=== PATIENT | male | born 1940 | race Caucasian/White ===

== ENCOUNTER 2021-08-23 06:22 | Inpatient (IN) ==
[2021-08-23] MEDS ORDERED: NS 1000 ML 1,000 ML ONE (06:50)
[2021-08-23] MEDS ORDERED: ANCEF 1 GRAM IV PREMIX* 2 G/100 ML BAG IV ONE (06:51)
[2021-08-23] MEDS ORDERED: XYLOCAINE 1 % (PLAIN) ONE (07:27)
[2021-08-23 07:31] VITALS: BMI 19.8
[2021-08-23] MEDS ORDERED: DIPRIVAN VIAL ONE (08:12)
[2021-08-23] MEDS ORDERED: MARCAINE SPINAL ONE (08:12)
[2021-08-23] MEDS ORDERED: VERSED ONE (08:12)
[2021-08-23] MEDS ORDERED: BETADINE SOLN ONE ×2 (08:25→08:26)
[2021-08-23] MEDS ORDERED: BACTROBAN TOPICAL OINT ONE (09:38)
--- NOTE | 2021-08-23 09:53 | OR.IMMED ---
IMMEDIATE POST-OP NOTE Immediate Post-Op Note Pre-Op Diagnosis: severe osteomyelitis left foot Post-Op Diagnosis: same Procedure: left below knee amputation Description of Procedure: see operative summary Surgeon/Dredge Worker: annalise Findings: as above Specimens Removed: left leg below knee Estimated Blood Loss: 200 cc Drains: NONE Complications: none Progress Notes: admit Condition: Stable Post Hospital Plans and Medications: admit for observation
[2021-08-23] MEDS: LR 1000 ML IV 1,000 ML IV SCH ×2 (11:35→23:36)
[2021-08-23] MEDS: PERCOCET TAB 5/325 MG PO PRN ×2 (11:42→17:50)
[2021-08-23] MEDS ORDERED: DILAUDID INJ IVP PRN (13:34)
--- NOTE | 2021-08-23 17:53 | DR.OPNOTE ---
OP NOTE Pre-Op Diagnosis: This patient is a 81 yo male with osteomyelitis left foot Post-Op Diagnosis: same Procedure Date Date Of Procedure: 08/23/21 Procedure: Patient was taken to the operating Suite where he was placed in the supine position after a spinal anesthetic had been placed. Time out for the procedure obtained . A dog-leg type incision was performed starting one hands breadths below the tibial tuberosity of the left knee. The greater saphenous vein was divided between clamps and tied with 2-0 silk ties. The muscle of the anterior tibial compartment divided with electrocautery down to the anterior tibial artery and vein. Both were divided between clamps and tied with 2-0 silk suture ligatures. Dissection was carried down with electrocautery medial to the fibula and the peroneal artery clamped and tied with 2-0 silk suture liga shantel. Periosteal elevator used to elevate the periosteum of the tibia. Tibia divided with a Gigli saw and the fibula divided with a bone cutter. Amputation completed with the amputation knife. All bleeding vessels clamped and tied with 2-0 silk suture ligatures. The remaining hemostasis obtained with electrocautery. The entire wound irrigated. The two flaps then closed with interrupted 3-0 Vicryl sutures and the skin closed with skin gertrudis. Dressing applied. The patient was taken to PACU in good condition. Type of Anesthesia: Spinal Anesthetic Findings: as above Specimen/Pathology: left leg below knee Type of Fluids Used:: Lactated Ringers EBL: 200 cc Complications:: none Needle/Sponge Count:: correct Disposition/Condition: Pt. tolerated procedure without difficulty. Extubated in the OR and taken to PACU in stable condition.
[2021-08-23] MEDS: COREG TAB 25 MG PO SCH (21:27)
[2021-08-23] MEDS: PEPCID TAB 20 MG PO SCH (21:28)
[2021-08-24] MEDS: PERCOCET TAB 5/325 MG PO PRN ×4 (02:51→20:56)
[2021-08-24 06:54] LABS: BASOPHILS % (AUTO) 0.2 % (0.2-1.0); EOSINOPHILS % (AUTO) 0.4 % (0.9-2.9); HEMOGLOBIN 11.2 g/dL (13.5-18.0); LYMPHOCYTES # (AUTO) 1.1 X10^3/uL (1.3-2.9); LYMPHOCYTES % (AUTO) 17.3 % (21.0-51.0); MEAN CORPUSCULAR HEMOGLOBIN 28.9 pg (27.0-34.0); MEAN CORPUSCULAR VOLUME 85.1 fL (80.0-100.0); MEAN PLATELET VOLUME 7.2 fL (7.4-11.0); MONOCYTES # (AUTO) 0.4 x10^3/uL (0.3-0.8); MONOCYTES % (AUTO) 5.4 % (0.0-13.0); NEUTROPHILS % (AUTO) 76.7 % (42.0-75.0); PLATELET COUNT 142 X10^3/uL (150.0-450.0); RED BLOOD COUNT 3.87 X10^6/uL (4.7-6.0); RED CELL DISTRIBUTION WIDTH 16.1 % (11.6-16.5); WHITE BLOOD COUNT 6.5 X10^3/uL (3.6-10.0)
[2021-08-24 07:04] LABS: BLOOD UREA NITROGEN 13 mg/dL (7-18); CALCIUM 8.9 mg/dL (8.5-10.1); CARBON DIOXIDE 27.6 mmol/L (21-32); CHLORIDE 99 mmol/L (98-107); COR NA(FOR HYPERGLY) 136 mmol/L (136-145); CREATININE 0.77 mg/dL (0.70-1.30); SODIUM 132 mmol/L (136-145); eGFR NON BLACK RACES > 60 (>60)
[2021-08-24] MEDS: ASPIRIN 81 MG CHEWTAB PO SCH (08:35)
[2021-08-24] MEDS: LASIX IVP SCH (08:36)
[2021-08-24] MEDS: LOVENOX INJ 40 MG SYR SC SCH (08:36)
[2021-08-24] MEDS: LIPITOR TAB 40 MG PO SCH (08:36)
[2021-08-24] MEDS: COREG TAB 25 MG PO SCH ×2 (08:40→20:56)
[2021-08-24] MEDS: COZAAR PO SCH (08:40)
[2021-08-24] MEDS: PEPCID TAB 20 MG PO SCH ×2 (08:40→20:57)
[2021-08-24] MEDS: LR 1000 ML IV 1,000 ML IV SCH (13:21)
--- NOTE | 2021-08-24 13:37 | NOTE.SOAP ---
Soap Note Note for Day of Date of Exam: 08/24/21 Subjective Data Subjective Data: Postoperative day one after left Below knee amputation . Doing well. Alert and oriented times three. Pain under control. Objective Data Temperature: 98.7 F Pulse Rate: 69 Respiratory Rate: 19 Blood Pressure: 156/69 O2 Sat by Pulse Oximetry: 100 Objective Data: patient awake and alert. Left below knee amputation dressing without blood or drainage .hemoglobin equals 11. 2 Assessment Assessment: status post left below knee amputation, doing well. Plan Plan: Will plan [facility] assessment .
[2021-08-24] MEDS: SNACK - Diabetic Appropriate PO SCH (20:01)
[2021-08-24] MEDS: HumuLIN R SUBCUT PRN (22:24)
[2021-08-25] MEDS: PERCOCET TAB 5/325 MG PO PRN ×4 (04:05→21:20)
[2021-08-25] MEDS: PEPCID TAB 20 MG PO SCH ×2 (08:45→20:39)
[2021-08-25] MEDS: COZAAR PO SCH (08:46)
[2021-08-25] MEDS: COREG TAB 25 MG PO SCH ×2 (08:46→20:39)
[2021-08-25] MEDS: LOVENOX INJ 40 MG SYR SC SCH (08:46)
[2021-08-25] MEDS: ASPIRIN 81 MG CHEWTAB PO SCH (08:46)
[2021-08-25] MEDS: LIPITOR TAB 40 MG PO SCH (08:46)
[2021-08-25] MEDS: LASIX IVP SCH (08:56)
[2021-08-25] MEDS: HumuLIN R SUBCUT PRN ×3 (11:42→20:39)
--- NOTE | 2021-08-25 12:37 | NOTE.SOAP ---
Soap Note Note for Day of Date of Exam: 08/25/21 Subjective Data Subjective Data: POD # 2 doing well. Pain under control . Awaiting placement in SNF. Objective Data Temperature: 98.2 F Pulse Rate: 80 Respiratory Rate: 20 Blood Pressure: 147/67 O2 Sat by Pulse Oximetry: 97 Objective Data: Dressing intact left leg.No bloody drainage. Assessment Assessment: S/P left BKA Plan Plan: Await placement
--- NOTE | 2021-08-25 12:41 | NOTE.SOAP ---
Soap Note Note for Day of Date of Exam: 08/25/21 Subjective Data Subjective Data: Postoperative day two after left below knee amputation . Doing well Objective Data Temperature: 98.2 F Pulse Rate: 80 Respiratory Rate: 20 Blood Pressure: 147/67 O2 Sat by Pulse Oximetry: 97 Objective Data: dressing intact no drainage Assessment Assessment: status post left below knee amputation Plan Plan: Await placement
[2021-08-25] MEDS: SNACK - Diabetic Appropriate PO SCH (20:38)
[2021-08-26] MEDS: ASPIRIN 81 MG CHEWTAB PO SCH (09:24)
[2021-08-26] MEDS: COZAAR PO SCH (09:27)
[2021-08-26] MEDS: COREG TAB 25 MG PO SCH ×2 (09:27→20:10)
[2021-08-26] MEDS: PEPCID TAB 20 MG PO SCH ×2 (09:28→20:10)
[2021-08-26] MEDS: LOVENOX INJ 40 MG SYR SC SCH (09:29)
[2021-08-26] MEDS: LIPITOR TAB 40 MG PO SCH (09:32)
[2021-08-26] MEDS: PERCOCET TAB 5/325 MG PO PRN ×3 (11:15→23:56)
[2021-08-26] MEDS: HumuLIN R SUBCUT PRN ×3 (12:57→21:00)
--- NOTE | 2021-08-26 12:57 | NOTE.SOAP ---
Soap Note Note for Day of Date of Exam: 08/26/21 Subjective Data Subjective Data: Postoperative day 3 after left below knee amputation. Resting comfortably. Objective Data Temperature: 98 F Pulse Rate: 82 Respiratory Rate: 20 Blood Pressure: 182/77 O2 Sat by Pulse Oximetry: 97 Assessment Assessment: Status post left [place] application. Doing well Plan Plan: await it starts planning.
[2021-08-26] MEDS: LASIX IVP SCH (18:42)
[2021-08-26] MEDS: SNACK - Diabetic Appropriate PO SCH (20:09)
[2021-08-26] MEDS: MELATONIN PO PRN (22:20)
[2021-08-27] MEDS: HumuLIN R SUBCUT PRN ×3 (05:43→21:53)
[2021-08-27] MEDS: PERCOCET TAB 5/325 MG PO PRN ×2 (06:25→20:05)
[2021-08-27] MEDS: PEPCID TAB 20 MG PO SCH ×2 (09:34→20:04)
[2021-08-27] MEDS: COZAAR PO SCH (09:34)
[2021-08-27] MEDS: COREG TAB 25 MG PO SCH ×2 (09:34→20:04)
[2021-08-27] MEDS: LASIX IVP SCH (09:35)
[2021-08-27] MEDS: LOVENOX INJ 40 MG SYR SC SCH (09:35)
[2021-08-27] MEDS: ASPIRIN 81 MG CHEWTAB PO SCH (09:35)
[2021-08-27] MEDS: LIPITOR TAB 40 MG PO SCH (09:36)
[2021-08-27] MEDS: PATIENT'S HOME MEDICATION PO SCH ×2 (10:00→20:04)
[2021-08-27] MEDS: LASIX PO SCH (11:15)
--- NOTE | 2021-08-27 19:30 | NOTE.SOAP ---
Soap Note Note for Day of Date of Exam: 08/27/21 Subjective Data Subjective Data: Postoperative day for after left below knee amputation. Patient very stable over the weekend. Much more confused today and this evening tried to get out of bed and fell. No complaints. Objective Data Temperature: 98.4 F Pulse Rate: 53 Respiratory Rate: 20 Blood Pressure: 164/70 O2 Sat by Pulse Oximetry: 96 Objective Data: left below knee stump is healing well. No hematoma. Assessment Assessment: Patient has been accepted for Inpatient Rehab and will be discharged there tomorrow.
[2021-08-27] MEDS: ATIVAN TAB 1 MG PO PRN (20:04)
[2021-08-27] MEDS: MELATONIN PO PRN (20:05)
[2021-08-27] MEDS: SNACK - Diabetic Appropriate PO SCH (20:05)
[2021-08-28] MEDS: HumuLIN R SUBCUT PRN (05:48)
[2021-08-28 06:40] LABS: BASOPHILS % (AUTO) 0.4 % (0.2-1.0); EOSINOPHILS # (AUTO) 0.1 x10^3/uL (0.0-0.2); HEMATOCRIT 31.4 % (42.0-54.0); HEMOGLOBIN 10.6 g/dL (13.5-18.0); LYMPHOCYTES # (AUTO) 0.7 X10^3/uL (1.3-2.9); LYMPHOCYTES % (AUTO) 22.9 % (21.0-51.0); MEAN CORPUSCULAR HEMOGLOBIN 28.9 pg (27.0-34.0); MEAN CORPUSCULAR HGB CONC 33.8 g/dL (33.0-35.0); MEAN CORPUSCULAR VOLUME 85.4 fL (80.0-100.0); MEAN PLATELET VOLUME 7.4 fL (7.4-11.0); MONOCYTES # (AUTO) 0.2 x10^3/uL (0.3-0.8); MONOCYTES % (AUTO) 4.8 % (0.0-13.0); NEUTROPHILS # (AUTO) 2.2 x10^3/uL (2.2-4.8); NEUTROPHILS % (AUTO) 68.9 % (42.0-75.0); PLATELET COUNT 151 X10^3/uL (150.0-450.0); RED BLOOD COUNT 3.68 X10^6/uL (4.7-6.0); RED CELL DISTRIBUTION WIDTH 15.5 % (11.6-16.5); WHITE BLOOD COUNT 3.2 X10^3/uL (3.6-10.0)
[2021-08-28 06:54] LABS: ALANINE AMINOTRANSFERASE 12 Units/L (12-78); ALBUMIN 2.2 g/dL (3.4-5.0); ALKALINE PHOSPHATASE 48 Units/L (46-116); ASPARTATE AMINO TRANSFERASE 20 Units/L (15-37); BLOOD UREA NITROGEN 12 mg/dL (7-18); CALCIUM 9.1 mg/dL (8.5-10.1); CARBON DIOXIDE 26.4 mmol/L (21-32); CHLORIDE 100 mmol/L (98-107); COR CA(FOR HYPOALB) 10.5 mg/dL (8.5-10.1); COR NA(FOR HYPERGLY) 136 mmol/L (136-145); SODIUM 133 mmol/L (136-145); TOTAL PROTEIN 6.6 g/dL (6.4-8.2); eGFR NON BLACK RACES > 60 (>60)
[2021-08-28] MEDS: PERCOCET TAB 5/325 MG PO PRN ×2 (08:23→12:50)
[2021-08-28] MEDS: ATIVAN TAB 1 MG PO PRN (08:24)
[2021-08-28] MEDS: ASPIRIN 81 MG CHEWTAB PO SCH (08:24)
[2021-08-28] MEDS: COREG TAB 25 MG PO SCH (08:24)
[2021-08-28] MEDS: LASIX PO SCH (08:24)
[2021-08-28] MEDS: COZAAR PO SCH (08:24)
[2021-08-28] MEDS: PEPCID TAB 20 MG PO SCH (08:24)
[2021-08-28] MEDS: LIPITOR TAB 40 MG PO SCH (08:25)
[2021-08-28] MEDS: PATIENT'S HOME MEDICATION PO SCH (09:00)
[2021-08-28] MEDS: LOVENOX INJ 40 MG SYR SC SCH (09:00)
[2021-08-28 09:57] VITALS: BP 166/68
--- NOTE | 2021-08-28 10:00 | W.DIS.FURT ---
Summary of Discharge Discharge Summary of Date Date of Exam: 08/28/21 Admission Date Date of Admission: 08/23/21 Admission Diagnosis Hospital Course: 81 year old male with non-healing wound to the left foot in osteomyelitis of the left foot. He has a history of dementia as well. Can do it uncomplicated left loading amputation on August 23 without complication. He has done well. He'll be discharged to Rehab Facility today.He will continue his usual home medications. He will be given Percocet 5 milligram tablets, one every six hours PRN Pain. He will follow up with Doctor Field in one week. His stump is healing nicely. Vital Signs: Vital Signs (72 hours) 08/25/21 12:00 08/25/21 12:37 08/25/21 12:40 Temperature 98.4 F 98.2 F 98.2 F Pulse Rate 80 80 Pulse Rate [Bilateral Radial] 90 Respiratory Rate 20 20 20 Blood Pressure 147/67 147/67 Blood Pressure [Left Arm] 130/62 Blood Pressure [Right Arm] O2 Sat by Pulse Oximetry 97 97 97 08/25/21 16:00 08/25/21 17:08 08/25/21 18:08 Temperature 98.4 F Pulse Rate Pulse Rate [Bilateral Radial] 75 Respiratory Rate 20 18 20 Blood Pressure Blood Pressure [Left Arm] 155/68 Blood Pressure [Right Arm] O2 Sat by Pulse Oximetry 100 08/25/21 20:00 08/25/21 21:20 08/25/21 22:20 Temperature 98.7 F Pulse Rate Pulse Rate [Bilateral Radial] 85 Respiratory Rate 20 20 20 Blood Pressure Blood Pressure [Left Arm] 172/70 Blood Pressure [Right Arm] O2 Sat by Pulse Oximetry 97 08/26/21 00:00 08/26/21 04:00 08/26/21 08:00 Temperature 98.0 F 98.5 F 98 F Pulse Rate Pulse Rate [Bilateral Radial] 64 71 82 Respiratory Rate 18 17 20 Blood Pressure Blood Pressure [Left Arm] Blood Pressure [Right Arm] 142/65 159/66 182/77 O2 Sat by Pulse Oximetry 99 99 97 08/26/21 11:15 08/26/21 12:00 08/26/21 12:15 Temperature 97.9 F Pulse Rate Pulse Rate [Bilateral Radial] 80 Respiratory Rate 18 20 18 Blood Pressure Blood Pressure [Left Arm] Blood Pressure [Right Arm] 129/58 O2 Sat by Pulse Oximetry 99 08/26/21 12:57 08/26/21 16:00 08/26/21 20:00 Temperature 98 F 98.6 F 98.4 F Pulse Rate 82 Pulse Rate [Bilateral Radial] 70 76 Respiratory Rate 20 20 18 Blood Pressure 182/77 Blood Pressure [Left Arm] Blood Pressure [Right Arm] 152/67 189/71 O2 Sat by Pulse Oximetry 97 98 99 08/26/21 20:10 08/26/21 21:10 08/26/21 23:56 Temperature Pulse Rate Pulse Rate [Bilateral Radial] Respiratory Rate 19 19 19 Blood Pressure Blood Pressure [Left Arm] Blood Pressure [Right Arm] O2 Sat by Pulse Oximetry 08/26/21 23:58 08/27/21 00:56 08/27/21 04:00 Temperature 98.4 F 97.7 F Pulse Rate Pulse Rate [Bilateral Radial] 71 69 Respiratory Rate 18 19 20 Blood Pressure Blood Pressure [Left Arm] Blood Pressure [Right Arm] 175/72 171/72 O2 Sat by Pulse Oximetry 99 99 08/27/21 06:25 08/27/21 07:25 08/27/21 08:00 Temperature 98.6 F Pulse Rate Pulse Rate [Bilateral Radial] 60 Respiratory Rate 20 20 20 Blood Pressure Blood Pressure [Left Arm] Blood Pressure [Right Arm] 146/64 O2 Sat by Pulse Oximetry 100 08/27/21 12:00 08/27/21 16:00 08/27/21 19:30 Temperature 98.9 F 98.4 F 98.4 F Pulse Rate 53 L Pulse Rate [Bilateral Radial] 68 53 L Respiratory Rate 20 20 20 Blood Pressure 164/70 Blood Pressure [Left Arm] Blood Pressure [Right Arm] 172/69 164/70 O2 Sat by Pulse Oximetry 98 96 96 08/27/21 20:00 08/27/21 20:05 08/27/21 21:05 Temperature 98.0 F Pulse Rate Pulse Rate [Bilateral Radial] 79 Respiratory Rate 20 20 20 Blood Pressure Blood Pressure [Left Arm] Blood Pressure [Right Arm] 166/70 O2 Sat by Pulse Oximetry 100 08/28/21 00:00 08/28/21 04:00 08/28/21 08:00 Temperature 98.2 F 99.0 F 98.0 F Pulse Rate Pulse Rate [Bilateral Radial] 58 L 63 63 Respiratory Rate 18 17 18 Blood Pressure Blood Pressure [Left Arm] Blood Pressure [Right Arm] 164/67 180/76 166/68 O2 Sat by Pulse Oximetry 99 99 99 08/28/21 08:23 Temperature Pulse Rate Pulse Rate [Bilateral Radial] Respiratory Rate 20 Blood Pressure Blood Pressure [Left Arm] Blood Pressure [Right Arm] O2 Sat by Pulse Oximetry Labs: Laboratory Last Values WBC 3.2 X10^3/uL (3.6-10.0) L 08/28/21 05:48 RBC 3.68 X10^6/uL (4.7-6.0) L 08/28/21 05:48 Hgb 10.6 g/dL (13.5-18.0) L 08/28/21 05:48 Hct 31.4 % (42.0-54.0) L 08/28/21 05:48 MCV 85.4 fL (80.0-100.0) 08/28/21 05:48 MCH 28.9 pg (27.0-34.0) 08/28/21 05:48 MCHC 33.8 g/dL (33.0-35.0) 08/28/21 05:48 RDW 15.5 % (11.6-16.5) 08/28/21 05:48 Plt Count 151 X10^3/uL (150.0-450.0) 08/28/21 05:48 MPV 7.4 fL (7.4-11.0) 08/28/21 05:48 Neut % (Auto) 68.9 % (42.0-75.0) 08/28/21 05:48 Lymph % (Auto) 22.9 % (21.0-51.0) 08/28/21 05:48 [place] % (Auto) 4.8 % (0.0-13.0) 08/28/21 05:48 Eos % (Auto) 3.0 % (0.9-2.9) H 08/28/21 05:48 Baso % (Auto) 0.4 % (0.2-1.0) 08/28/21 05:48 Neut # (Auto) 2.2 x10^3/uL (2.2-4.8) 08/28/21 05:48 Lymph # (Auto) 0.7 X10^3/uL (1.3-2.9) L 08/28/21 05:48 [place] # (Auto) 0.2 x10^3/uL (0.3-0.8) L 08/28/21 05:48 Eos # (Auto) 0.1 x10^3/uL (0.0-0.2) 08/28/21 05:48 Baso # (Auto) 0.0 X10^3/uL (0.0-0.1) 08/28/21 05:48 Absolute Nucleated RBC 0.5 /100WBC 08/28/21 05:48 Sodium 133 mmol/L (136-145) L 08/28/21 05:48 Corrected Sodium 136 mmol/L (136-145) 08/28/21 05:48 Potassium 3.9 mmol/L (3.5-5.1) 08/28/21 05:48 Chloride 100 mmol/L (98-107) 08/28/21 05:48 Carbon Dioxide 26.4 mmol/L (21-32) 08/28/21 05:48 BUN 12 mg/dL (7-18) 08/28/21 05:48 Creatinine 0.70 mg/dL (0.70-1.30) 08/28/21 05:48 Est GFR (MDRD) Af Amer > 60 (>60) 08/28/21 05:48 Est GFR (MDRD) Non-Af > 60 (>60) 08/28/21 05:48 Glucose 245 mg/dL (65-99) H 08/28/21 05:48 POC Glucose (mg/dL) 235 mg/dL (65-99) H 08/28/21 05:14 Calcium 9.1 mg/dL (8.5-10.1) 08/28/21 05:48 Corrected Calcium 10.5 mg/dL (8.5-10.1) H 08/28/21 05:48 Total Bilirubin 0.60 mg/dL (0.2-1.0) 08/28/21 05:48 AST 20 Units/L (15-37) 08/28/21 05:48 ALT 12 Units/L (12-78) 08/28/21 05:48 Alkaline Phosphatase 48 Units/L (46-116) 08/28/21 05:48 Total Protein 6.6 g/dL (6.4-8.2) 08/28/21 05:48 Albumin 2.2 g/dL (3.4-5.0) L 08/28/21 05:48 Globulin 4.4 g/dL (2.5-4.5) 08/28/21 05:48 Albumin/Globulin Ratio 0.5 Ratio (1.1-2.1) L 08/28/21 05:48 Tissue Pathology To follow 08/23/21 09:30 Impression: osteomyelitis left foot Reason For Visit: BELOW THE KNEE AMPUTATION Discharge Date Discharge Date: 08/28/21 Discharge Diagnosis All Active Problems (Updated 08/28/21 @ 09:56 by Darwin Field) Osteomyelitis of foot (Acute) Plan of Treatment: Continue with present treatment and follow up plan. Pt is to keep follow up appointment as instructed and take medications as ordered. Discharge Medications Discharge Medications: No Known Drug Allergies Allergy (Verified 08/23/21 07:11) CONTINUE taking the following medications atorvastatin 40 mg PO QHS 08/23/21 [History] famotidine 20 mg PO BID 08/23/21 [History] furosemide [Lasix] 10 mg PO BID 08/23/21 [History] losartan 100 mg PO DAILY 08/23/21 [History] mycophenolate mofetil 500 mg PO BID 08/23/21 [History] prednisone 5 mg PO DAILY 08/23/21 [History] Percocet, 5 mg, one po q 6 hours PRN pain Follow up and Referral Follow Up: 1 Week Discharge Disposition Assessment: Osteomyelitis left foot requiring left below knee amputation . Discharge Disposition: to rehab facility Discharge Condition: stable and doing well Discharge Plan Discharge Plan Hospital Course: 81 year old male with non-healing wound to the left foot in osteomyelitis of the left foot. He has a history of dementia as well. Can do it uncomplicated left loading amputation on August 23 without complication. He has done well. He'll be discharged to Rehab Facility today.He will continue his usual home medications. He will be given Percocet 5 milligram tablets, one every six hours PRN Pain. He will follow up with Doctor Field in one week. His stump is healing nicely. Patient Disposition: Disch/Tx to Rehabilitation Fac Condition: Stable Health Concerns: Post Hospitalization: new medications and changes needed to prevent readmission or further decline. Pt educated and given instructions on all concerns. Care Plan Goals: Patient to undergo rehab. Goal would be to fit him for below kneee prosthesis that he can use to ambulate . Plan of Treatment: Continue with present treatment and follow up plan. Pt is to keep follow up appointment as instructed and take medications as ordered. Assessment: Osteomyelitis left foot requiring left below knee amputation . Prescription drug monitoring program results: PDMP reviewed and no concerns identified Prescriptions: Continued mycophenolate mofetil 500 mg Tablet 500 mg PO BID RF: 0 prednisone 5 mg Tablet 5 mg PO DAILY RF: 0 famotidine 20 mg Tablet 20 mg PO BID RF: 0 losartan 100 mg Tablet 100 mg PO DAILY RF: 0 furosemide [Lasix] 20 mg Tablet 10 mg PO BID RF: 0 atorvastatin 40 mg Tablet 40 mg PO QHS RF: 0 Orders to Discharge Patient Discharge Orders: Discharge (Routine); Ordered 08/28/21 Ordered By: Darwin Field Follow ups/Referrals Follow ups/Referrals: [facility],None [Primary Care Provider] - 1 WEEK Darwin Field [STAFF PHYSICIAN] - 09/05/21 1:30 pm Instructions Instructions: Living With an Amputation, Gangrene, Phantom Limb Pain, Stump and Prosthesis Care Stand Alone Forms: Excuse From Work or School, Precautions for COVID19, [facility], Patient Portal, Social Distancing
== END 2021-08-28 12:55 | DRG 475 ==
LOC: MED/SURG 06:22
PROVIDERS: ADMIT Surgery; ATTEND Surgery
DX: Z94.0 Kidney transplant status; M86.672 Other chronic osteomyelitis, left ankle and foot; I10 Essential (primary) hypertension; F03.90 Unspecified dementia, unspecified severity, without behavioral disturbance, psychotic disturbance, mood disturbance, and anxiety; I25.10 Atherosclerotic heart disease of native coronary artery without angina pectoris; I70.249 Atherosclerosis of native arteries of left leg with ulceration of unspecified site; Z86.73 Personal history of transient ischemic attack (TIA), and cerebral infarction without residual deficits; R26.89 Other abnormalities of gait and mobility; E11.65 Type 2 diabetes mellitus with hyperglycemia